=== PATIENT | male | born 1945 ===

== ENCOUNTER → 2018-01-08 | Outpatient (CLI) | payer MEDICARE, OTHER ==
[~2018-01-08] MED LIST: AMLO-99 PO; ATOR20TA65 PO; DOXA2TAB58 PO; DUTA0.5C14 PO; LOSA100T67 PO; METF-411 PO; RIVA20TA PO; SOTA80TA48 PO
== END ==
LOC: LAB 14:06
PROVIDERS: ATTEND Surgery
DX: C44.319 Basal cell carcinoma of skin of other parts of face (principal)
CPT/HCPCS: 88305